=== PATIENT | male | born 1965 | race Caucasian/White ===

== ENCOUNTER 2018-10-09 18:43 | Inpatient (IN) | payer MEDICAID ==
[~2018-10-09] VITALS: Ht 180.3 cm; Wt 106.1 kg
[2018-10-09] MEDS ORDERED: ONDANSETRON ODT 4 MG ONE (19:21)
[2018-10-09] MEDS ORDERED: ACETAMINOPHEN 500 MG TABLET ONE (19:21)
--- NOTE | 2018-10-09 19:26 | NUR ---
Pt presents to ED with large lac to left forehead, mitch placed from previous visit. Lac is clean with no evidence of infection. Seizure pads in place on gurney rails. Pt medicated for pain and nausea. Family at bedside. Lab at bedside for blood draw. Pt placed on all monitors.
[2018-10-09] MEDS ORDERED: ACETAMINOPHEN 500 MG TABLET PO ONE (19:30)
[2018-10-09] MEDS ORDERED: ONDANSETRON ODT 4 MG PO ONE (19:30)
[2018-10-09 19:48] LABS: ANION GAP 3 mmol/L (5-15); CHLORIDE 107 mmol/L (98-107); CREATININE 0.77 mg/dL (0.7-1.3)
[2018-10-09 19:59] LABS: MEAN CORPUSCULAR HEMOGLOBIN 25.8 pg (27.5-34.5); MEAN CORPUSCULAR HGB CONC 32.5 g/dL (33.2-36.2); MEAN CORPUSCULAR VOLUME 79.3 fL (81-97); MEAN PLATELET VOLUME 8.8 fL (7.4-10.4); PLATELET COUNT 295 x10^3/uL (130-400); RED BLOOD COUNT 4.76 x10^6/uL (4.38-5.82); RED CELL DISTRIBUTION WIDTH 23.5 % (9.4-14.8)
[2018-10-09 20:00] LABS: MD YES
[2018-10-09 20:21] LABS: LYMPH#(MANUAL) 1.08 x10^3/uL (1-3.4); LYMPHS% (MANUAL) 6 % (22-44); MONOS#(MANUAL) 0.54 x10^3/uL (0.3-2.7); MONOS% (MANUAL) 3 % (2-9); MYELOCYTES# (MANUAL) 0.72 x10^3/uL (0-0); MYELOCYTES% (MANUAL) 4 % (0-0); REACTIVE LYMPHS # (MANUAL) 0.18 x10^3/uL (0-0); REACTIVE LYMPHS % (MANUAL) 1 % (0-0); SEG#(MANUAL) 15.48 x10^3/uL (1.8-6.8); SEGS% (MANUAL) 86 % (42-75)
[2018-10-09 20:25] LABS: ANISOCYTOSIS 1+; HYPOCHROMIA 1+; MICROCYTOSIS 1+; OVALOCYTES 1+
[2018-10-09 20:26] LABS: <PLATELET ESTIMATE> ADEQUATE; LARGE PLATELETS 1+
[2018-10-09] MEDS ORDERED: DEXAMETHASONE 4 MG TABLET ONE (20:34)
[2018-10-09] MEDS ORDERED: FERR324T5 PO (20:43)
[2018-10-09] MEDS ORDERED: DEXA6TAB6 PO (20:43)
[2018-10-09] MEDS: DEXAMETHASONE 4 MG/ML, 1ML IV SCH (21:00)
[2018-10-09] MEDS ORDERED: ACETAMINOPHEN 325 MG TABLET PO PRN (21:00)
[2018-10-09] MEDS ORDERED: DEXAMETHASONE 4 MG TABLET PO SCH (21:00)
[2018-10-09] MEDS ORDERED: POLYETHYLENE GLYCOL 17 GM PACKET PO PRN (21:00)
[2018-10-09 21:05] VITALS: BP 148/76
[2018-10-10] MEDS ORDERED: CALCIUM CARBONATE 500 MG TAB.CHEW PO PRN (00:30)
[2018-10-10] MEDS: DEXAMETHASONE 4 MG/ML, 1ML IV SCH ×4 (02:34→20:11)
[2018-10-10 02:44] VITALS: BP 127/72
[2018-10-10 06:20] LABS: MEAN CORPUSCULAR HEMOGLOBIN 25.7 pg (27.5-34.5); MEAN CORPUSCULAR VOLUME 80.3 fL (81-97); MEAN PLATELET VOLUME 9.2 fL (7.4-10.4); PLATELET COUNT 266 x10^3/uL (130-400); RED BLOOD COUNT 4.47 x10^6/uL (4.38-5.82); RED CELL DISTRIBUTION WIDTH 23.6 % (9.4-14.8)
[2018-10-10 06:27] LABS: CHLORIDE 104 mmol/L (98-107)
[2018-10-10 06:37] LABS: ALANINE AMINOTRANSFERASE 97 U/L (12-78); ALBUMIN 2.9 g/dL (3.4-5.0); ALKALINE PHOSPHATASE 86 U/L (45-117); ANION GAP 5 mmol/L (5-15); BILIRUBIN,TOTAL 0.5 mg/dL (0.2-1.0); CALCIUM 8.3 mg/dL (8.5-10.1); CREATININE 0.75 mg/dL (0.7-1.3); TOTAL PROTEIN 5.5 g/dL (6.4-8.2)
[2018-10-10 06:39] LABS: MD YES
[2018-10-10 06:40] LABS: BAND#(MANUAL) 1.07 x10^3/uL; BANDS%(MANUAL) 6 % (0-7); METAMYELOCYTES# (MANUAL) 0.54 x10^3/uL (0-0); METAMYELOCYTES% (MANUAL) 3 % (0-1); MYELOCYTES# (MANUAL) 0.18 x10^3/uL (0-0); MYELOCYTES% (MANUAL) 1 % (0-0); SEG#(MANUAL) 15.04 x10^3/uL (1.8-6.8); SEGS% (MANUAL) 84 % (42-75)
[2018-10-10 06:41] LABS: LYMPH#(MANUAL) 0.36 x10^3/uL (1-3.4); LYMPHS% (MANUAL) 2 % (22-44); MONOS#(MANUAL) 0.72 x10^3/uL (0.3-2.7); MONOS% (MANUAL) 4 % (2-9)
[2018-10-10 06:42] LABS: ANISOCYTOSIS 1+; MICROCYTOSIS 1+; OVALOCYTES 1+
[2018-10-10 06:43] LABS: <PLATELET ESTIMATE> ADEQUATE; <PLT MORPHOLOGY> NORMAL PLT MORPH; HYPOCHROMIA 1+
[2018-10-10 07:48] VITALS: BP 148/89
[2018-10-10 16:28] VITALS: BP 145/64
[2018-10-10 20:43] LABS: MICROSCOPIC AUTO
[2018-10-10 20:47] LABS: CULTURE INDICATED? NO
[2018-10-10 20:50] VITALS: BP 115/72
[2018-10-11 01:30] VITALS: BP 137/84
[2018-10-11] MEDS: DEXAMETHASONE 4 MG/ML, 1ML IV SCH ×4 (03:26→15:07)
[2018-10-11 05:27] LABS: MEAN CORPUSCULAR HEMOGLOBIN 24.8 pg (27.5-34.5); MEAN CORPUSCULAR HGB CONC 31.2 g/dL (33.2-36.2); MEAN CORPUSCULAR VOLUME 79.7 fL (81-97); MEAN PLATELET VOLUME 8.7 fL (7.4-10.4); PLATELET COUNT 285 x10^3/uL (130-400); RED BLOOD COUNT 4.62 x10^6/uL (4.38-5.82); RED CELL DISTRIBUTION WIDTH 24.2 % (9.4-14.8)
[2018-10-11 05:31] LABS: ALBUMIN 2.9 g/dL (3.4-5.0); ANION GAP 10 mmol/L (5-15); CALCIUM 8.1 mg/dL (8.5-10.1); CHLORIDE 104 mmol/L (98-107)
[2018-10-11 05:35] LABS: ALANINE AMINOTRANSFERASE 82 U/L (12-78); ALKALINE PHOSPHATASE 78 U/L (45-117); BILIRUBIN,TOTAL 0.4 mg/dL (0.2-1.0); CREATININE 0.82 mg/dL (0.7-1.3); TOTAL PROTEIN 5.5 g/dL (6.4-8.2)
[2018-10-11 06:19] LABS: MD YES
[2018-10-11 06:21] LABS: ANISOCYTOSIS 1+; HYPOCHROMIA 1+; LYMPH#(MANUAL) 1.98 x10^3/uL (1-3.4); LYMPHS% (MANUAL) 8 % (22-44); METAMYELOCYTES# (MANUAL) 0.74 x10^3/uL (0-0); METAMYELOCYTES% (MANUAL) 3 % (0-1); MICROCYTOSIS 1+; MONOS#(MANUAL) 2.22 x10^3/uL (0.3-2.7); MONOS% (MANUAL) 9 % (2-9); MYELOCYTES# (MANUAL) 0.25 x10^3/uL (0-0); MYELOCYTES% (MANUAL) 1 % (0-0); OVALOCYTES 1+; SEG#(MANUAL) 19.51 x10^3/uL (1.8-6.8); SEGS% (MANUAL) 79 % (42-75)
[2018-10-11 06:22] LABS: <PLATELET ESTIMATE> ADEQUATE; LARGE PLATELETS 1+
[2018-10-11 07:03] VITALS: BP 172/119
[2018-10-11 07:26] VITALS: BP 130/80
[2018-10-11 13:18] VITALS: BP 148/84
[2018-10-11] MEDS ORDERED: DEXA4TAB66 PO (15:01)
[2018-10-11] MEDS ORDERED: CALC200T24 PO (15:01)
== END 2018-10-11 16:17 | disposition home or self-care (01) | DRG 71 ==
LOC: ED 19:48 → EDIP 20:14 → 4EST 21:00 → DCLOUNGE 10-11 15:56
PROVIDERS: ADMIT Family Medicine; ATTEND Internal Medicine
DX: G93.41 Metabolic encephalopathy (principal); C71.9 Malignant neoplasm of brain, unspecified; D50.9 Iron deficiency anemia, unspecified; D53.9 Nutritional anemia, unspecified; D72.829 Elevated white blood cell count, unspecified; Z88.0 Allergy status to penicillin; Z79.52 Long term (current) use of systemic steroids; Z88.2 Allergy status to sulfonamides; Z87.891 Personal history of nicotine dependence
CPT/HCPCS: 36415; 70450; 71045; 80048; 80053; 81001; 82040; 83735; 84100; 85025; 87040; G0378; J1100; Q0162

== ENCOUNTER 2018-10-19 17:18 | Emergency (ER) | payer MEDICAID ==
[~2018-10-19] VITALS: Ht 180.3 cm; Wt 111.1 kg
[~2018-10-19 17:18] MED LIST: CALC200T24 PO; DEXA4TAB66 PO; DEXA6TAB6 PO; FERR324T5 PO
[2018-10-19 18:10] LABS: ALANINE AMINOTRANSFERASE 335 U/L (12-78); ALBUMIN 2.9 g/dL (3.4-5.0); ANION GAP 9 mmol/L (5-15); CALCIUM 7.9 mg/dL (8.5-10.1); CHLORIDE 109 mmol/L (98-107); CREATININE 0.75 mg/dL (0.7-1.3)
[2018-10-19 18:14] LABS: ALKALINE PHOSPHATASE 101 U/L (45-117); BILIRUBIN,TOTAL 0.4 mg/dL (0.2-1.0); TOTAL PROTEIN 5.9 g/dL (6.4-8.2)
[2018-10-19 18:39] LABS: MEAN CORPUSCULAR HEMOGLOBIN 26.7 pg (27.5-34.5); MEAN CORPUSCULAR HGB CONC 32.3 g/dL (33.2-36.2); MEAN CORPUSCULAR VOLUME 82.5 fL (81-97); PLATELET COUNT 196 x10^3/uL (130-400); RED BLOOD COUNT 3.93 x10^6/uL (4.38-5.82); RED CELL DISTRIBUTION WIDTH 25.1 % (9.4-14.8)
[2018-10-19 18:45] LABS: MD YES
[2018-10-19 18:54] LABS: <PLATELET ESTIMATE> ADEQUATE; <PLT MORPHOLOGY> NORMAL PLT MORPH; ANISOCYTOSIS 1+; BAND#(MANUAL) 0.63 x10^3/uL; BANDS%(MANUAL) 4 % (0-7); EOS#(MANUAL) 0.16 x10^3/uL (0.0-0.4); EOS% (MANUAL) 1 % (1-7); HYPOCHROMIA 1+; LYMPH#(MANUAL) 1.11 x10^3/uL (1-3.4); LYMPHS% (MANUAL) 7 % (22-44); METAMYELOCYTES# (MANUAL) 0.32 x10^3/uL (0-0); METAMYELOCYTES% (MANUAL) 2 % (0-1); MONOS#(MANUAL) 0.95 x10^3/uL (0.3-2.7); MONOS% (MANUAL) 6 % (2-9); NRBC % (MANUAL) 1 % (0-1); OVALOCYTES 1+; SEG#(MANUAL) 12.64 x10^3/uL (1.8-6.8); SEGS% (MANUAL) 80 % (42-75)
--- NOTE | 2018-10-19 19:02 | NUR ---
ASSUMED CARE OF PATIENT. PATIENT REPORTS HE HAD RECENT BRAIN SURGERY. PT REPORTS A HEADACHE TODAY. PT IS ALSO ANXIOUS. PT REPORTS NO ONE IS TALKING TO HIM ABOUT HIS PLAN OF CARE. VS STABLE. FAMILY AT BEDSIDE. CALL LIGHT IN PLACE. WILL CONTINUE TO MONITOR.
[2018-10-19] MEDS ORDERED: DIPHENHYDRAMINE 25 MG CAPSULE ONE (19:22)
--- NOTE | 2018-10-19 19:25 | NUR ---
DR JOHN HAS SEEN PATIENT.
[2018-10-19] MEDS ORDERED: DIPHENHYDRAMINE 25 MG CAPSULE PO ONE (19:30)
--- NOTE | 2018-10-19 20:13 | NUR ---
PT IN ROOM VISITING WITH FAMILY. VS STABLE. NO ACUTE DISTRESS NOTED. WILL CONITNUE TO MONITOR.
[2018-10-19 20:17] VITALS: BP 134/83
--- NOTE | 2018-10-19 20:20 | NUR ---
DR JOHN IN ROOM UPDATING PATIENT.
== END 2018-10-19 20:32 | disposition home or self-care (01) ==
LOC: ED 19:12
DX: L50.9 Urticaria, unspecified (principal); R74.0 Nonspecific elevation of levels of transaminase and lactic acid dehydrogenase [LDH]; R51 Headache
CPT/HCPCS: 36415; 80053; 83880; 85025; 99283; Q0163